=== PATIENT | female | born 1970 | race Caucasian/White ===

== ENCOUNTER 2018-11-05 19:37 | Emergency (ER) | payer MEDICAID ==
[~2018-11-05] VITALS: Ht 157.5 cm; Wt 65.0 kg
[~2018-11-05 19:37] MED LIST: ALBU8.5H4 IH; ALBU8HFA PO; ATOR20TA PO; BACDS PO; CLA10T PO; HYDR1TAB PO
[2018-11-05 19:44] VITALS: BP 135/84
[2018-11-05] MEDS ORDERED: AMOX-422 PO (23:13)
[2018-11-05] MEDS ORDERED: amox tr/potassium clavulanate 875/125mg TAB PO ONE (23:15)
== END 2018-11-05 23:21 | disposition home or self-care (01) ==
LOC: ER 19:38
DX: H66.91 Otitis media, unspecified, right ear (principal); J44.9 Chronic obstructive pulmonary disease, unspecified; E11.9 Type 2 diabetes mellitus without complications; F17.210 Nicotine dependence, cigarettes, uncomplicated; Z90.89 Acquired absence of other organs; Z88.1 Allergy status to other antibiotic agents; Z88.2 Allergy status to sulfonamides; Z79.899 Other long term (current) drug therapy
CPT/HCPCS: 99283

== ENCOUNTER 2019-06-21 12:19 | Emergency (ER) | payer MEDICAID ==
[~2019-06-21] VITALS: Ht 160 cm; Wt 70.0 kg
[2019-06-21 12:25] VITALS: BP 131/93
[2019-06-21] MEDS ORDERED: CLIN150C8 PO (12:59)
== END 2019-06-21 13:32 | disposition home or self-care (01) ==
LOC: ER 12:20
DX: L08.9 Local infection of the skin and subcutaneous tissue, unspecified (principal); J44.9 Chronic obstructive pulmonary disease, unspecified; E11.9 Type 2 diabetes mellitus without complications; Z88.1 Allergy status to other antibiotic agents; Z88.8 Allergy status to other drugs, medicaments and biological substances
CPT/HCPCS: 99283

== ENCOUNTER 2019-07-14 14:09 | Emergency (ER) | payer MEDICAID ==
[~2019-07-14] VITALS: Ht 160 cm; Wt 59.0 kg
[~2019-07-14 14:09] MED LIST changes: +CLIN150C8 PO
[2019-07-14 14:46] VITALS: BP 148/87
[2019-07-14] MEDS ORDERED: benzonatate 100mg capsule PO ONE (16:10)
[2019-07-14] MEDS ORDERED: BENZ-16 PO (16:16)
== END 2019-07-14 16:40 | disposition home or self-care (01) ==
LOC: ER 14:10
DX: J06.9 Acute upper respiratory infection, unspecified (principal); J44.9 Chronic obstructive pulmonary disease, unspecified; E11.9 Type 2 diabetes mellitus without complications; F17.200 Nicotine dependence, unspecified, uncomplicated; Z98.890 Other specified postprocedural states; Z79.2 Long term (current) use of antibiotics; Z79.899 Other long term (current) drug therapy
CPT/HCPCS: 99283

== ENCOUNTER 2019-07-26 17:11 | Emergency (ER) | payer MEDICAID ==
[~2019-07-26] VITALS: Ht 160 cm; Wt 54.0 kg
[~2019-07-26 17:11] MED LIST changes: +BENZ-16 PO
[2019-07-26 17:13] VITALS: BP 113/58
[2019-07-26] MEDS ORDERED: PRED20TA PO (18:09)
[2019-07-26] MEDS ORDERED: GUAI120L55 PO (18:53)
== END 2019-07-26 19:13 | disposition home or self-care (01) ==
LOC: ER 17:12
DX: J44.1 Chronic obstructive pulmonary disease with (acute) exacerbation (principal); J06.9 Acute upper respiratory infection, unspecified; L02.413 Cutaneous abscess of right upper limb; E11.9 Type 2 diabetes mellitus without complications; F17.200 Nicotine dependence, unspecified, uncomplicated; Z90.89 Acquired absence of other organs; Z98.890 Other specified postprocedural states; Z88.1 Allergy status to other antibiotic agents; Z79.899 Other long term (current) drug therapy
CPT/HCPCS: 71045; 99283

== ENCOUNTER 2019-09-27 16:42 | Emergency (ER) | payer MEDICAID ==
[~2019-09-27 16:42] MED LIST changes: -BENZ-16 PO; +GUAI120L55 PO
== END 2019-09-27 18:42 | disposition left against medical advice (07) ==
LOC: ER 16:42
DX: R51 Headache (principal); Z53.21 Procedure and treatment not carried out due to patient leaving prior to being seen by health care provider

== ENCOUNTER 2019-09-29 06:33 | Emergency (ER) | payer MEDICAID ==
[~2019-09-29] VITALS: Ht 160 cm; Wt 60.0 kg
[2019-09-29 06:38] VITALS: BP 127/95
[2019-09-29] MEDS ORDERED: ketorolac trometh inj. 60 MG/2 ML VIAL IM ONE (07:25)
[2019-09-29] MEDS ORDERED: CLIN-90 PO (07:25)
[2019-09-29] MEDS ORDERED: ketorolac trometh. 30mg/ml inj. IM ONE (07:30)
== END 2019-09-29 07:44 | disposition home or self-care (01) ==
LOC: ER 06:33
DX: J34.0 Abscess, furuncle and carbuncle of nose (principal); R51 Headache; J44.9 Chronic obstructive pulmonary disease, unspecified; E11.9 Type 2 diabetes mellitus without complications; Z90.89 Acquired absence of other organs; Z98.890 Other specified postprocedural states; Z88.8 Allergy status to other drugs, medicaments and biological substances; Z79.899 Other long term (current) drug therapy
CPT/HCPCS: 96372; 99283; J1885

== ENCOUNTER 2019-12-13 20:28 | Emergency (ER) | payer MEDICAID ==
[~2019-12-13] VITALS: Ht 160 cm; Wt 62.0 kg
[~2019-12-13 20:28] MED LIST changes: +CLIN-97 PO
--- NOTE | 2019-12-13 20:51 | NUR ---
provider in evaluating pts foot.
[2019-12-13 21:29] VITALS: BP 154/79
== END 2019-12-13 21:30 | disposition home or self-care (01) ==
LOC: ER 20:29
DX: S93.692A Other sprain of left foot, initial encounter (principal); J44.9 Chronic obstructive pulmonary disease, unspecified; E11.9 Type 2 diabetes mellitus without complications; Z88.1 Allergy status to other antibiotic agents; W23.0XXA Caught, crushed, jammed, or pinched between moving objects, initial encounter; Y93.02 Activity, running; Y92.89 Other specified places as the place of occurrence of the external cause; Y99.8 Other external cause status
CPT/HCPCS: 73630; 99283

== ENCOUNTER 2020-06-13 11:29 | Emergency (ER) | payer MEDICAID ==
[~2020-06-13] VITALS: Ht 160 cm; Wt 66.4 kg
[2020-06-13] MEDS ORDERED: CYCL-1 PO (12:38)
[2020-06-13] MEDS ORDERED: ketorolac tromethamine 15mg/ml inj. IM ONE (12:40)
[2020-06-13 14:20] VITALS: BP 122/83
== END 2020-06-13 13:35 | disposition home or self-care (01) ==
LOC: ER 11:30
DX: S86.811A Strain of other muscle(s) and tendon(s) at lower leg level, right leg, initial encounter (principal); J44.9 Chronic obstructive pulmonary disease, unspecified; E11.9 Type 2 diabetes mellitus without complications; Z88.1 Allergy status to other antibiotic agents; Z88.8 Allergy status to other drugs, medicaments and biological substances; Z79.899 Other long term (current) drug therapy; W18.39XA Other fall on same level, initial encounter; Y93.89 Activity, other specified; Y92.89 Other specified places as the place of occurrence of the external cause; Y99.8 Other external cause status
CPT/HCPCS: 96372; 99283; J1885

== ENCOUNTER 2021-03-21 14:30 | Emergency (ER) | payer MEDICAID ==
[~2021-03-21] VITALS: Ht 160 cm; Wt 60.1 kg
[~2021-03-21 14:30] MED LIST changes: -BACDS PO; +CYCL-1 PO; +SULF1TAB45 PO
[2021-03-21 14:59] VITALS: BP 140/86
[2021-03-21] MEDS ORDERED: IBUP-1985 PO (18:56)
== END 2021-03-21 19:31 | disposition home or self-care (01) ==
LOC: ER 14:31
DX: M79.671 Pain in right foot (principal); J44.9 Chronic obstructive pulmonary disease, unspecified; E11.9 Type 2 diabetes mellitus without complications; Z88.8 Allergy status to other drugs, medicaments and biological substances; Z79.899 Other long term (current) drug therapy; W01.198A Fall on same level from slipping, tripping and stumbling with subsequent striking against other object, initial encounter; Y93.89 Activity, other specified; Y92.89 Other specified places as the place of occurrence of the external cause; Y99.8 Other external cause status
CPT/HCPCS: 73630; 99283

== ENCOUNTER 2021-06-25 07:22 | Emergency (ER) | payer MEDICAID ==
[~2021-06-25] VITALS: Ht 160 cm; Wt 56.7 kg
[~2021-06-25 07:22] MED LIST changes: +IBUP-1985 PO
[2021-06-25 07:33] VITALS: BP 120/80
[2021-06-25] MEDS ORDERED: DOXY100C43 PO (07:39)
== END 2021-06-25 08:38 | disposition home or self-care (01) ==
LOC: ER 07:23
DX: H00.036 Abscess of eyelid left eye, unspecified eyelid (principal); J44.9 Chronic obstructive pulmonary disease, unspecified; E11.9 Type 2 diabetes mellitus without complications; Z88.8 Allergy status to other drugs, medicaments and biological substances
CPT/HCPCS: 99283

== ENCOUNTER 2021-07-19 13:45 | Emergency (ER) | payer MEDICAID ==
[~2021-07-19] VITALS: Ht 160 cm; Wt 63.6 kg
[2021-07-19 15:15] VITALS: BP 127/85
[2021-07-19 15:26] LABS: BASOPHILS # (AUTO) 0.1 X10'3 (0-0.2); BASOPHILS % (AUTO) 0.6 % (0-1); EOSINOPHILS # (AUTO) 0.3 X10'3 (0-0.9); EOSINOPHILS % (AUTO) 2.6 % (0-6); HEMATOCRIT 38.2 % (35.0-45.0); LYMPHOCYTES # (AUTO) 3.8 X10'3 (1.1-4.8); LYMPHOCYTES % (AUTO) 39.7 % (21-51); MEAN CORPUSCULAR HEMOGLOBIN 30.3 PG (27.0-31.0); MEAN CORPUSCULAR VOLUME 89.1 FL (78-98); MEAN PLATELET VOLUME 8.2 FL (7.4-10.4); MONOCYTES # (AUTO) 0.7 X10'3 (0-0.9); MONOCYTES % (AUTO) 7.5 % (2-12); NEUTROPHILS # (AUTO) 4.8 X10'3 (1.8-7.7); NEUTROPHILS % (AUTO) 49.6 % (42-75); PLATELET COUNT 414 X10'3 (140-440); RED BLOOD COUNT 4.28 X10'6 (4.20-5.60); RED CELL DISTRIBUTION WIDTH 14.8 % (11.5-14.5); WHITE BLOOD COUNT 9.6 X10'3 (4.5-11.0)
[2021-07-19 15:40] LABS: ALANINE AMINOTRANSFERASE 27 U/L (12-78); ALBUMIN 3.4 G/DL (3.4-5.0); ALBUMIN/GLOBULIN RATIO 0.9 (1.1-1.5); ALKALINE PHOSPHATASE 92 IU/L (46-116); ANION GAP 9 (8-16); ASPARTATE AMINO TRANSFERASE 14 U/L (10-37); BILIRUBIN,TOTAL 0.2 MG/DL (0.1-1.0); BLOOD UREA NITROGEN 8 MG/DL (7-18); BUN/CREATININE RATIO 11.9 (6.6-38.0); C-REACTIVE PROTEIN 0.56 MG/DL (0.0-0.5); CALCIUM 8.2 MG/DL (8.5-10.1); CHLORIDE 104 MMOL/L (99-107); CREATININE 0.67 MG/DL (0.40-0.90); GLUCOSE 127 MG/DL (70-104); LACTATE DEHYDROGENASE 181 U/L (81-234); POTASSIUM 3.6 MMOL/L (3.5-5.1); SODIUM 138 MMOL/L (135-145); TOTAL CARBON DIOXIDE 25.3 MMOL/L (24-32); TOTAL PROTEIN 7.4 G/DL (6.4-8.2); eGFR > 90 ML/MIN
[2021-07-19] MEDS ORDERED: AZIT-103 PO (16:27)
[2021-07-19] MEDS ORDERED: ALBU8HFA PO (16:27)
== END 2021-07-19 17:00 | disposition home or self-care (01) ==
LOC: ER 13:46
DX: J20.9 Acute bronchitis, unspecified (principal); Z20.822 Contact with and (suspected) exposure to COVID-19; R05.9 Cough, unspecified; R06.02 Shortness of breath; J44.9 Chronic obstructive pulmonary disease, unspecified; E11.9 Type 2 diabetes mellitus without complications; F17.200 Nicotine dependence, unspecified, uncomplicated; Z90.89 Acquired absence of other organs; Z98.890 Other specified postprocedural states; Z88.8 Allergy status to other drugs, medicaments and biological substances; Z79.2 Long term (current) use of antibiotics; Z79.899 Other long term (current) drug therapy
CPT/HCPCS: 36415; 71045; 80053; 83615; 85025; 86140; 87635; 99284; C9803

== ENCOUNTER 2021-11-13 13:52 | Emergency (ER) | payer MEDICAID ==
[~2021-11-13] VITALS: Ht 160 cm; Wt 63.6 kg
[2021-11-13] MEDS ORDERED: ALBU8HFA PO (15:33)
[2021-11-13] MEDS ORDERED: ROBDML PO (15:33)
[2021-11-13 15:42] VITALS: BP 139/90
== END 2021-11-13 15:43 | disposition home or self-care (01) ==
LOC: ER 13:52
DX: J02.9 Acute pharyngitis, unspecified (principal); Z20.822 Contact with and (suspected) exposure to COVID-19; R05.9 Cough, unspecified; J44.9 Chronic obstructive pulmonary disease, unspecified; E11.9 Type 2 diabetes mellitus without complications; Z90.89 Acquired absence of other organs; Z98.890 Other specified postprocedural states; Z88.8 Allergy status to other drugs, medicaments and biological substances; Z79.2 Long term (current) use of antibiotics; Z79.899 Other long term (current) drug therapy
CPT/HCPCS: 87635; 99283; C9803

== ENCOUNTER 2022-10-24 09:12 | Emergency (ER) | payer MEDICAID ==
[~2022-10-24] VITALS: Ht 160 cm; Wt 65.0 kg
[2022-10-24 09:33] VITALS: BP 118/68
[2022-10-24 09:40] LABS: BASOPHILS # (AUTO) 0.1 X10'3 (0-0.2); BASOPHILS % (AUTO) 0.8 % (0-1); EOSINOPHILS # (AUTO) 0.3 X10'3 (0-0.9); HEMATOCRIT 41.8 % (35.0-45.0); HEMOGLOBIN 13.9 g/dl (12.0-16.0); LYMPHOCYTES % (AUTO) 23.7 % (21-51); MEAN CORPUSCULAR HEMOGLOBIN 29.2 PG (27.0-31.0); MEAN CORPUSCULAR HGB CONC 33.1 g/dL (33.0-36.5); MEAN CORPUSCULAR VOLUME 88.1 FL (78-98); MEAN PLATELET VOLUME 8.2 FL (7.4-10.4); MONOCYTES # (AUTO) 1.2 X10'3 (0-0.9); MONOCYTES % (AUTO) 9.6 % (2-12); NEUTROPHILS # (AUTO) 8.1 X10'3 (1.8-7.7); NEUTROPHILS % (AUTO) 63.9 % (42-75); PLATELET COUNT 395 X10'3 (140-440); RED BLOOD COUNT 4.75 X10'6 (4.20-5.60); RED CELL DISTRIBUTION WIDTH 15.7 % (11.5-14.5); WHITE BLOOD COUNT 12.7 X10'3 (4.5-11.0)
[2022-10-24 10:05] LABS: ALANINE AMINOTRANSFERASE 20 U/L (12-78); ALBUMIN 3.9 G/DL (3.4-5.0); ALBUMIN/GLOBULIN RATIO 0.9 (1.1-1.5); ALKALINE PHOSPHATASE 121 IU/L (46-116); ANION GAP 4 (8-16); ASPARTATE AMINO TRANSFERASE 18 U/L (10-37); BILIRUBIN,TOTAL 0.6 MG/DL (0.1-1.0); BLOOD UREA NITROGEN 7 MG/DL (7-18); BUN/CREATININE RATIO 11.1 (6.6-38.0); CALCIUM 9.4 MG/DL (8.5-10.1); CHLORIDE 101 MMOL/L (99-107); CREATININE 0.63 MG/DL (0.40-0.90); GLUCOSE 102 MG/DL (70-104); MAGNESIUM 2.1 MG/DL (1.5-2.4); POTASSIUM 3.7 MMOL/L (3.5-5.1); SODIUM 134 MMOL/L (135-145); TOTAL CARBON DIOXIDE 28.6 MMOL/L (24-32); TOTAL PROTEIN 8.1 G/DL (6.4-8.2); eGFR > 90 ML/MIN
[2022-10-24] MEDS ORDERED: mag hydrox/Alum hydrox/simeth 30ml oral suspension PO ONE (12:00)
[2022-10-24] MEDS ORDERED: sucralfate 1 gm tablet PO ONE (12:00)
[2022-10-24] MEDS ORDERED: LIDOcaine Viscous 15ml cup MM ONE (12:00)
== END 2022-10-24 13:20 | disposition home or self-care (01) ==
LOC: ER 09:13
DX: R07.89 Other chest pain (principal); J44.9 Chronic obstructive pulmonary disease, unspecified; E11.9 Type 2 diabetes mellitus without complications; Z88.2 Allergy status to sulfonamides
CPT/HCPCS: 36415; 71045; 80053; 83735; 83880; 84484; 85025; 93005; 99285

== ENCOUNTER 2023-03-25 17:42 | Emergency (ER) | payer MEDICAID ==
[~2023-03-25] VITALS: Ht 162.6 cm; Wt 59.1 kg
[~2023-03-25 17:42] MED LIST changes: +CLIN-214 PO; -CLIN150C8 PO
[2023-03-25 18:14] VITALS: BP 132/85
[2023-03-25] MEDS ORDERED: CIPR10DR RIGHT EAR (18:18)
== END 2023-03-25 18:23 | disposition home or self-care (01) ==
LOC: ER 17:43
DX: H60.8X1 Other otitis externa, right ear (principal); J44.9 Chronic obstructive pulmonary disease, unspecified; E11.9 Type 2 diabetes mellitus without complications; J45.909 Unspecified asthma, uncomplicated; Z88.8 Allergy status to other drugs, medicaments and biological substances; Z79.899 Other long term (current) drug therapy
CPT/HCPCS: 99283

== ENCOUNTER 2023-12-14 10:56 | Emergency (ER) | payer BC, MEDICAID ==
[~2023-12-14] VITALS: Ht 160 cm; Wt 56.8 kg
[2023-12-14 11:01] VITALS: BP 145/97; PULSE 90; RESP 18; TEMP 98; O2SAT 98
[2023-12-14] MEDS ORDERED: ALBU6.7H14 INH (11:19)
[2023-12-14] MEDS ORDERED: PRED20TA PO (11:19)
[2023-12-14] MEDS ORDERED: BUDE180A INH (11:19)
[2023-12-14] MEDS ORDERED: CEPH250T PO (11:19)
[2023-12-14] MEDS: bacitracin 15gm ointment TP ONE (11:28)
== END 2023-12-14 11:50 | disposition home or self-care (01) ==
LOC: ER 10:56
DX: L02.512 Cutaneous abscess of left hand (principal); J06.9 Acute upper respiratory infection, unspecified; J45.901 Unspecified asthma with (acute) exacerbation; J44.9 Chronic obstructive pulmonary disease, unspecified; E11.9 Type 2 diabetes mellitus without complications; Z88.1 Allergy status to other antibiotic agents; Z79.899 Other long term (current) drug therapy; Z79.2 Long term (current) use of antibiotics
CPT/HCPCS: 71045; 99283; J7030; A6258